=== PATIENT | female | born 1990 | race American Indian/Alaskan Native ===

== ENCOUNTER 2020-05-24 12:45 | Emergency (ER) | payer OTHER ==
[2020-05-24 12:53] VITALS: BP 138/90
--- NOTE | 2020-05-24 14:27 | Emergency Department Report ---
ED General Adult HPI - General Chief complaint: Fall Stated complaint: BUTTOCK PAIN Source: patient, EMS Mode of arrival: Wheelchair Limitations: No Limitations - History of Present Illness Initial comments: 29-year-old -[place] female patient presents with complaints of lower back pain radiating down her right buttock and leg after falling down the stairs yesterday. She rates her pain as a 10/10 in severity and denies any loss of bladder/bowel control, numbness/tingling/weakness in her limbs, saddle paresthesia, abdominal pain, or urinary symptoms. Pain worsens with ambulation - Related Data Previous Rx's Medication Instructions Recorded Last Taken Type Diclofenac Sodium 50 mg PO TID PRN #21 tablet. 05/24/20 Unknown Rx methOCARBAMOL [Robaxin TAB] 1,500 mg PO TID PRN #24 tab 05/24/20 Unknown Rx Allergies Allergy/AdvReac Type Severity Reaction Status Date / Time No Known Allergies Allergy Unverified 05/24/20 12:50 ED Review of Systems ROS: Stated complaint: BUTTOCK PAIN Other details as noted in HPI Constitutional: denies: chills, fever, malaise Respiratory: denies: shortness of breath Cardiovascular: denies: chest pain Gastrointestinal: denies: abdominal pain, hematochezia Genitourinary: denies: hematuria Musculoskeletal: back pain. denies: arthralgia Skin: denies: rash, change in color Neurological: denies: headache, weakness, numbness, paresthesias ED Past Medical Hx - Past Medical History Previous Medical History?: No - Surgical History Past Surgical History?: No - Medications Home Medications: Home Medications Medication Instructions Recorded Confirmed Last Taken Type Diclofenac Sodium 50 mg PO TID PRN #21 tablet. 05/24/20 Unknown Rx methOCARBAMOL [Robaxin TAB] 1,500 mg PO TID PRN #24 tab 05/24/20 Unknown Rx ED Physical Exam - General Limitations: No Limitations General appearance: alert, in no apparent distress - Head Head exam: Present: atraumatic, normocephalic - Eye Eye exam: Present: normal appearance. Absent: scleral icterus - ENT ENT exam: Present: mucous membranes moist - Neck Neck exam: Present: normal inspection, full ROM - Respiratory Respiratory exam: Absent: respiratory distress - Cardiovascular Cardiovascular Exam: Present: regular rate - Back Exam Back exam: Present: full ROM, paraspinal tenderness (Mom), vertebral tenderness (Lumbar) - Expanded Back Exam Expanded Back exam: Positive Straight Leg Raise: Right - Neurological Exam Neurological exam: Present: alert, oriented X3, normal gait. Absent: motor sensory deficit - Expanded Neurological Exam Expanded Sensory exam: Lower Extremity Light Touch: Normal Motor strength exam: RUE: 5, LUE: 5, RLE: 5, LLE: 5 - Psychiatric Psychiatric exam: Present: normal affect, normal mood - Skin Skin exam: Present: warm, dry, intact, normal color. Absent: rash, cyanosis, diaphoretic, ecchymosis ED Course Vital Signs 05/24/20 05/24/20 05/24/20 12:52 16:27 16:28 Temperature 99.1 F Pulse Rate 71 Respiratory 16 18 18 Rate Blood Pressure 138/90 O2 Sat by Pulse 95 Oximetry ED Medical Decision Making - Radiology Data Radiology results: report reviewed XR spine lumbosacral 2-3V INDICATION / CLINICAL INFORMATION: pain after fall. COMPARISON: None available. FINDINGS: VERTEBRAE: No acute fracture. No significant malalignment. DISC SPACES / FACET JOINTS:No significant abnormality. PARASPINAL SOFT TISSUES:No significant abnormality. ADDITIONAL FINDINGS: None. IMPRESSION: 1. No acute findings. - Medical Decision Making 29-year-old -[place] female patient presents with complaints of lower back pain radiating down her right buttock and leg after falling down the stairs yesterday. She rates her pain as a 10/10 in severity and denies any loss of b ladder/bowel control, numbness/tingling/weakness in her limbs, saddle paresthesia, abdominal pain, or urinary symptoms. Pain worsens with ambulation No acute bony abnormalities are noted on x-ray. Positive straight leg raise test on exam. Will treat for sciatica. PCP follow-up recommended in 3 to 5 days. Strict return precautions were discussed in detail with patient who verbalized understanding. Critical care attestation.: If time is entered above; I have spent that time in minutes in the direct care of this critically ill patient, excluding procedure time. ED Disposition Clinical Impression: Lumbar strain Qualifiers: Encounter type: initial encounter Qualified Code(s): S39.012A - Strain of muscle, fascia and tendon of lower back, initial encounter Sciatica Qualifiers: Laterality: right Qualified Code(s): M54.31 - Sciatica, right side Disposition: DC-01 TO HOME OR SELFCARE Is pt being admited?: No Condition: Stable Instructions: Sciatica, Lumbosacral Strain Prescriptions: Diclofenac Sodium 50 mg PO TID PRN #21 tablet.dr PRN Reason: pain methOCARBAMOL [Robaxin TAB] 1,500 mg PO TID PRN #24 tab PRN Reason: Muscle spasm/tightness Referrals: [facility] [Provider Group] - 3-5 Days Forms: Work/School Release Form(ED)
--- NOTE | 2020-05-24 14:44 | XRay Report ---
XR spine lumbosacral 2-3V INDICATION / CLINICAL INFORMATION: pain after fall. COMPARISON: None available. FINDINGS: VERTEBRAE: No acute fracture. No significant malalignment. DISC SPACES / FACET JOINTS:No significant abnormality. PARASPINAL SOFT TISSUES:No significant abnormality. ADDITIONAL FINDINGS: None. IMPRESSION: 1. No acute findings. Signer Name: Isaac Strickland MD Signed: 05/24/2020 2:39 PM Workstation Name: [id number]
[2020-05-24] MEDS ORDERED: IBUPROFEN 800 MG TAB PO ONE (15:23)
[2020-05-24] MEDS ORDERED: HYDROcodone/ACETAMINOPHEN 5-325 MG TAB PO ONE (15:23)
[2020-05-24] MEDS ORDERED: KETOROLAC 30 MG/1 ML INJ IM ONE (16:08)
== END 2020-05-24 16:15 | disposition home or self-care (01) ==
LOC: ED 12:45
DX: S39.012A Strain of muscle, fascia and tendon of lower back, initial encounter (principal); Z79.899 Other long term (current) drug therapy; W10.9XXA Fall (on) (from) unspecified stairs and steps, initial encounter; Y93.89 Activity, other specified; Y92.89 Other specified places as the place of occurrence of the external cause; Y99.8 Other external cause status
CPT/HCPCS: 72100; 96372; 99283; J1885